=== PATIENT | female | born 1985 | race African-American/Black ===

== ENCOUNTER 2024-01-31 15:15 | Emergency (ER) | payer OTHER ==
[~2024-01-31] VITALS: Ht 165.1 cm; Wt 59.9 kg
[2024-01-31 15:22] VITALS: BP 117/79; PULSE 101; RESP 24; TEMP 98.4; O2SAT 100
[2024-01-31] MEDS: diazePAM 5 MG TAB PO ONE (16:02)
[2024-01-31] MEDS: BUPIVACAINE-MPF 0.5% 30 ML VIAL INJ ONE (16:05)
[2024-01-31] MEDS: BUPIVACAINE-MPF 0.25% 30 ML VIAL INJ ONE (16:06)
[2024-01-31] MEDS ORDERED: MIDAZOLAM 2 MG/2 ML VIAL IM ONE (16:40)
[2024-01-31] MEDS ORDERED: ACET-8905 PO (17:07)
[2024-01-31 17:19] VITALS: BP 120/79; PULSE 88; RESP 16; TEMP 98.4; O2SAT 100
== END 2024-01-31 17:19 | disposition home or self-care (01) ==
LOC: MED 15:15
DX: K08.89 Other specified disorders of teeth and supporting structures (principal); Z79.899 Other long term (current) drug therapy
CPT/HCPCS: 64400; 81025; 99284; J2250; J3490